=== PATIENT | female | born 1965 | race Caucasian/White ===

== ENCOUNTER → 2017-07-11 15:15 | Observation (INO) ==
--- OUTSIDE RECORDS SUMMARY | 2017-07-10 18:06 | External Medical Summary | Referral Summary ---
:1965 Author [facility] Address [address] [place] [address] [place] [address] Care Team Providers Name Role Phone Kayla Mathis Primary Care Physician Encounter VC Date(s): 03/16/15 - 03/16/15 [facility] [place] [address] [place] Discharge Disposition: 01-Home or Self Care Attending Physician: Son Aguilar MD Admitting Physician: Son Aguilar MD Vital Signs Most recent to oldest [Reference Range]: 1 Blood Pressure [90-140/60-90 mmHg] 140/84 mmHg (03/16/15 10:28 AM) Problem List Condition Effective Dates Status Health Status Informant DVT of deep femoral vein(Confirmed) Active Elevated BP(Confirmed) Active Hyperlipidemia(Confirmed) Active Acute knee pain(Confirmed) Active Morbid obesity(Confirmed) Active patient Knee osteoarthritis(Confirmed) Active Allergies, Adverse Reactions, Alerts Substance Reaction Severity Status acetaminophen-HYDROcodone Adverse Reaction Active aspirin Adverse Reaction Active ciprofloxacin Adverse Reaction Active Medications Mobic 7.5 mg oral tablet 7.5 mg 1 tabs, Oral, BID, Pain, wk norcraft, # 60 tabs, 0 Refill(s), Pharmacy: [id number], 1 tabs Oral BID,PRN:Pain,Instr:wkc norcraft Start Date: 03/16/15 Status: Orderedpravastatin 20 mg oral tablet 20 mg 1 tabs, Oral, Daily, # 30 tabs, 0 Refill(s) Start Date: 03/01/15 Status: Orderedvenlafaxine 50 mg oral tablet 50 mg 1 tabs, Oral, Daily, 0 Refill(s) Start Date: 03/01/15 Status: OrderedVictoza 18 mg/3 mL subcutaneous solution SubCutaneous, Daily, 0 Refill(s) Start Date: 04/12/15 Status: Ordered Results No data available for this section Immunizations No data available for this section Procedures No data available for this section Social History Social History Type Response Smoking Status Never smoker Assessment and Plan Extracted from: Title: Ambulatory Patient Education Author: Son Aguilar MD Date: Family Medicine Arthralgia Your caregiver has diagnosed you as suffering from an arthralgia. Arthralgia means there is pain in a joint. This can come from many reasons including: Bruising the joint which causes soreness (inflammation) in the joint. Wear and tear on the joints which occur as we grow older (osteoarthritis). Overusing the joint. Various forms of arthritis. Infections of the joint. Regardless of the cause of pain in your joint, most of these different pains respond to anti-inflammatory drugs and rest. The exception to this is when a joint is infected, and these cases are treated with antibiotics, if it is a bacterial infection. HOME CARE INSTRUCTIONS Rest the injured area for as long as directed by your caregiver. Then slowly start using the joint as directed by your caregiver and as the pain allows. Crutches as directed may be useful if the an kles, knees or hips are involved. If the knee was splinted or casted, continue use and care as directed. If an stretchy or elastic wrapping bandage has been applied today, it should be removed and re-ap plied every 3 to 4 hours. It should not be applied tightly, but firmly enough to keep swelling down. Watch toes and feet for swelling, bluish discoloration, coldness, numbness or excessive pain. If any of these problems (symptoms) occur, remove the abimael bandage and re-apply more loosely. If these symptoms persist, contact your caregiver or return to this location. For the first 24 hours, keep the injured extremity elevated on pillows while lying down. Apply ice for 15-20 minutes to the sore joint every couple hours while awake for the first half day. Then 03-04 times per day for the first 48 hours. Put the ice in a plastic bag and place a towel between the bag of ice and your skin. Wear any splinting, casting, elastic bandage applications, or slings as instructed. Only take bksj-kde-qhxdvva or prescription medicines for pain, discomfort , or fever as directed by your caregiver. Do not use aspirin immediately after the injury unless instructed by your physicia n. Aspirin can cause increased bleeding and bruising of the tissues. If you were given crutches, continue to use them as instructed and do not resume weight bearing on the sore joint until instructed. Persistent pain and inability to use the sore joint as directed for more than 2 to 3 days are warning signs indicating that you should see a caregiver for a follow-up visit as soon as possible. Initiall y, a hairline fracture (break in bone) may not be evident on X-rays. Persistent pain and swelling indicate that further evaluation, non-weight bearing or use of the joint (use of crutches or slings as i nstructed), or further X-rays are indicated. X-rays may sometimes not show a small fracture until a week or 10 days later. Make a follow-up appointment with your own caregiver or one to whom we have ref erred you. A radiologist (specialist in reading X-rays) may read your X-rays. Make sure you know how you are to obtain your X-ray results. Do not assume everything is normal if you do not hear from us. SEEK MEDICAL CARE IF: Bruising, swelling, or pain increases. SEEK IMMEDIATE MEDICAL CARE IF: Your fingers or toes are numb or blue. The pain is not responding to medications and continues to stay the same or get worse. The pain in your joint becomes severe. You develop a fever over 102 F (38.9 C). It becomes impossible to move or use the joint. MAKE SURE YOU: Understand these instructions. Will watch your condition. Will get help right away if you are not doing well or get worse. Document Released: 06/01/2006 Document Revised: 08/23/2012 Document Reviewed: 01/17/2009 ExitCare Patient Information 2015 [employer]. This information is not intended to replace advice given to you by your health care provider. Make sure you discuss any questions you have with your health care provider. No follow up information was provided. Extracted from: Title: Office Visit Note Author: Son Aguilar MD Date: 03/16/15 Assessment/Plan Acute knee pain Xray reviewed. Refill mobic. A work/school note was offered and deferred by the patient. To PCP if pain persists. Elevated BP This issue is stable and appropriate refills, lab, and f/u have been discussed. The patient reports their blood pressure has been stable at home and is not having any significant or r elated problems. There has been no chest pain, chest pressure, soa/velarde. Knee osteoarthritis To PCP if pain persists. This appears to be chronic underlying knee pain aggravated by her [facility] issue. The patient has family members present who are agreeable with today's joanne n and have no additional concerns or requests. Moises here. Orders: meloxicam, 7.5 mg 1 tabs, Oral, BID, Pain, [facility], # 60 tabs, 0 Refill(s), Pharmacy: [id number], 1 tabs Oral BID,PRN:Pain,Instr: [facility]
--- OUTSIDE RECORDS SUMMARY | 2017-07-10 18:06 | External Medical Summary | Referral Summary ---
:1965 Author Organization [facility] [place] [address] Care Team Providers Name Role Phone Kayla Mathis Primary Care Physician Encounter VC Date(s): 03/01/15 - 03/01/15 [facility] [place] [address] [place] Discharge Disposition: 01-Home or Self Care Attending Physician: Son Aguilar MD Admitting Physician: Son Aguilar MD Vital Signs Most recent to oldest [Reference Range]: 1 Blood Pressure [90-140/60-90 mmHg] 140/90 mmHg (03/01/15 1:09 PM) Problem List Condition Effective Dates Status Health [...] norcraft, # 60 tabs, 0 Refill(s), Pharmacy: [id number], 1 tabs Oral BID,PRN:Pain,Instr:wkc norcraft Start Date: [...] Author: Son Aguilar MD Date: Family Medicine Cholesterol Cholesterol is a white, waxy, fat-like substance needed by your body in small amounts. The liver makes all the cholesterol you need. Cholesterol is carried from the liver by the blood through the blood vessels. Deposits of cholesterol (plaque) may build up on blood vessel nash. These make the arteries narrower and stiffer. Cholesterol plaques increase the risk for heart attack and stroke. You cannot feel your cholesterol level even if it is very high. The only way to know it is high is with a blood test. Once you know your cholesterol levels, you should keep a record of the test results. Work with your health care provider to keep your levels in the desired range. WHAT DO THE RESULTS MEAN? Total cholesterol is a rough measure of all the cholesterol in your blood. LDL is the so-called bad cholesterol. This is the type that deposits cholesterol in the nash of the arteries. You want this level to be low. HDL is the good cholesterol because it cleans the arteries and carries the LDL away. You want this level to be high. Triglycerides are fat that the body can either burn for energy or store. High levels are closely linked to heart disease. WHAT ARE THE DESIRED LEVELS OF CHOLESTEROL? Total cholesterol below 200. LDL below 100 for people at risk, below 70 for those at very high risk. HDL above 50 is good, above 60 is best. Triglycerides below 150. HOW CAN I LOWER MY CHOLESTEROL? Diet. Follow your diet programs as directed by your health care provider. Choose fish or white meat chicken and turkey, roasted or baked. Limit fatty cuts of red meat, fried foods, and processed meats, such as sausage and lunch meats. Eat lots of fresh fruits and vegetables. Choose whole grains, beans, pasta, potatoes, and cereals. Use only small amounts of olive, corn, or canola oils. Avoid butter, mayonnaise, shortening, or palm kernel oils. Avoid foods with trans fats. Drink skim or nonfat milk and eat low-fat or nonfat yogurt and cheeses. Avoid whole milk, cream, ice cream, egg yolks, and full-fat cheeses. Healthy desserts include priyanka food cake, mariano snaps, animal crackers, hard candy, popsicles, and low-fat or nonfat frozen yogurt. Avoid pastries, cakes, pies, and cookies. Exercise. Follow your exercise programs as directed by your health care provider. A regular program helps decrease LDL and raise HDL. A regular program helps with weight control. Do things that increase your activity level like gardening, walking, or taking the stairs. Ask your health care provider about how you can be more active in your daily life. Medicine. Take medicine only as directed by your health care provider. Medicine may be prescribed by your health care provider to help lower cholesterol and decrease the risk for heart disease. If you have several risk factors, you may need medicine even if your levels are normal. Document Released: 02/24/2002 Document Revised: 10/16/2014 Document Reviewed: 03/15/2014 [facility] Patient Information 2015 [employer]. This information is not intended to replace advice given to you by your health care provider. Make sure you discuss any questions you have with your health care provider. No follow up information was provided. Extracted from: Title: Office Visit Note Author: Son Aguilar MD Date: 03/01/15 Assessment/Plan Acute knee pain, Right knee pain Xray pending. Consider recheck/consult/and meds given. Mobic 7.5mg po bid prn. No other nsaids. DVT of deep femoral vein Has seen . Hyperlipidemia This issue is stable and appropriate refills, lab, and f/ u have been discussed. Emmy-menopausal This issue is stable and appropriate refills, lab, and f/u have been discussed. Orders: meloxicam, 7.5 mg 1 tabs, Oral, BID, Pain, wk norcraft, # 60 tabs, 0 Refill(s), Pharmacy: [id number], 1 tabs Oral BID,PRN:Pain,Instr: wk norcraft Addendum by Son Aguilar MD on The patient [place] March 01, 2015 14:04:24 CDT and to the department. Any pertinent available records, lab, outside information, and available health history forms have been reviewed.
--- OUTSIDE RECORDS SUMMARY | 2017-07-10 18:06 | External Medical Summary ---
:1965 Author Organization [employer] Care Team Providers Name Role Phone Ivy Yap Provider Role Unavailable Allergies No Known Allergies Problems Problem Type Condition Code Onset Dates Condition Status Problem Premature ventricular contractions I49.3 Active Problem Elevated blood pressure I10 Active Problem Dyslipidemia E78.5 Active Problem Prediabetes R73.09 Active Problem Pre-operative cardiovascular Z01.810 Active examination Medications No Known Medications Results No Known Results Summary Purpose eClinicalWorks Submission
--- OUTSIDE RECORDS SUMMARY | 2017-07-10 18:06 | External Medical Summary | Referral Summary ---
:1965 Author Organization [facility] [place] [address] Care Team Providers Name Role Phone Kayla Mathis Primary Care Physician Encounter VC Date(s): 04/12/15 - 04/12/15 [facility] [place] [address] [place] Discharge Disposition: 01-Home or Self Care Attending Physician: Son Aguilar MD Admitting Physician: Son Aguilar MD Vital Signs Most recent to oldest [Reference Range]: 1 Blood Pressure [90-140/60-90 mmHg] 140/90 mmHg (04/12/15 3:49 PM) Problem List Condition Effective Dates Status [...] norcraft, # 60 tabs, 0 Refill(s), Pharmacy: [facility], 1 tabs Oral BID,PRN:Pain,Instr:wkc norcraft Start Date: [...] Patient Education Author: Son Aguilar MD Date: 04/12 Family Medicine Arthralgia Your caregiver has diagnosed [...] applications, or slings as instructed. Only take [id number]-[id number] or prescription medicines for pain, discomfort , [...] Document Reviewed: 01/17/2009 ExitCare Patient Information 2015 [employer]. This information is not intended to replace advice given to you by your health care provider. Make sure you discuss any questions you have with your health care provider. No follow up information was provided. Extracted from: Title: Office Visit Note Author: Son Aguilar MD Date: 04/12/15 Assessment/Plan Acute meniscal tear, medial If correct needs to see Ortho. The patient has family members present who are agreeable with today's plan and have no additional concerns or requests. Knee osteoarthritis This issue is stable and appropriate refills, lab, and f/ u have been discussed. Continue mobic for now. See ortho.RTW note given and needs to see ortho. Knee pain, right See above. Morbid obesity Diet and exercise as tolerated and feasible. Consider medication when interested.
--- OUTSIDE RECORDS SUMMARY | 2017-07-10 18:06 | External Medical Summary | Referral Summary ---
:1965 Author [facility] Address [address] [place] [address] [place] [address] Care Team Providers Name Role Phone Kayla Mathis Primary Care Physician Encounter VC Date(s): 03/16/15 - 03/16/15 [facility] [place] [address] [place] Discharge Disposition: [...] Reaction Active ciprofloxacin Adverse Reaction Active Medications metFORMIN 500 mg oral tablet 500 mg 1 tabs, Oral, BID, # 180 tabs, 0 Refill(s) Start Date: 03/01/15 Status: OrderedMobic 7.5 mg oral tablet 7.5 mg 1 tabs, Oral, BID, Pain, [facility] norcraft, # 60 tabs, 0 Refill(s), Pharmacy: [id number], 1 tabs Oral BID,PRN:Pain,Instr:wkc norcraft Start Date: 03/16/15 Status: Orderedpravastatin 20 mg oral tablet 20 mg 1 tabs, Oral, Daily, # 30 tabs, 0 Refill(s) Start Date: 03/01/15 Status: Orderedvenlafaxine 50 mg oral tablet 50 mg 1 tabs, Oral, Daily, 0 Refill(s) Start Date: 03/01/15 Status: Ordered Results No data available for [...] applications, or slings as instructed. Only take trdb-swd-rqyomfz or prescription medicines for pain, discomfort , [...] Document Reviewed: 01/17/2009 ExitCare Patient Information 2015 [employer]. This information is not intended to replace [...] chronic underlying knee pain aggravated by her [facility] issue. The patient has family members present who are agreeable with today's joanne n and have no additional concerns or requests. Moises here. Orders: meloxicam, 7.5 mg 1 tabs, Oral, BID, Pain, [facility], # 60 tabs, 0 Refill(s), Pharmacy: [id number], 1 tabs Oral BID,PRN:Pain,Instr: [facility]
--- OUTSIDE RECORDS SUMMARY | 2017-07-10 18:06 | External Medical Summary | Referral Summary ---
:1965 Author Organization [facility] [place] [address] Care Team Providers Name Role Phone Kayla Mathis Primary Care Physician Encounter VC Date(s): 04/12/15 - 04/12/15 [facility] [place] [address] [place] Discharge Disposition: [...] norcraft, # 60 tabs, 0 Refill(s), Pharmacy: [facility], 1 tabs Oral BID,PRN:Pain,Instr:wkc norcraft [...] applications, or slings as instructed. Only take jqmp-sjf-pxbdvzq or prescription medicines for pain, discomfort , [...] Document Reviewed: 01/17/2009 ExitCare Patient Information 2015 [employer]. This information is not intended to replace [...]
[2017-07-10 18:23] VITALS: BMI 43.4
--- NOTE | 2017-07-10 18:41 | History & Physical Report ---
History of Present Illness Date: 07/10/17 Chief complaint: UTI, Fever HPI: Gracie is a pleasant 51-year-old female who presented to see her primary care provider, Dr. Kayla Mathis at [facility] in [place] today for evaluation of 10 days of dysuria. Patient was positive for influenza A last week and completed a course of Tamiflu. She reports that during this course. She began having dysuria and initially thought it was related to Tamiflu. As symptoms continued to worsen. She then became concerned about infection. At the clinic today. CBC was obtained, showed a normal white count of 10.5, hemoglobin 12.4. A dipstick urinalysis showed positive leukocytes, positive nitrites, positive protein with packed field of RBCs. At time of examination, patient had a fever of 104. Given the severity of her fever and clinical symptoms, accompanied with length of dysuria. The hospitalist services were contacted and directly admitted patient to [facility] outpatient observation under care of Dr. Mims. Patient is seen on arrival to [facility], is alert, oriented, pleasant and able to give accurate history. She does note that she was told she is a diabetic, however, does not take metformin because it has side effects and causes her to have joint pain. Review of Systems All systems PM: 10-point ROS was reviewed, no additional remarkable complaints except - Constitutional Constitutional: Present: chills, fatigue, fever(s), headache(s) - Genitourinary Genitourinary: Present: dysuria, hot flashes Past Medical History Hypertension Hyperlipidemia Type II diabetes Osteoarthritis Depression Polyarthralgia History of asthma Surgical History: Hysterectomy. Left knee arthroscopic. . Bladder laser. Total knee-2015 (Dr. Aden). Colonoscopy-2006. Negative stress test /[id number]. Sanchez Family History Updates: Father-lymphoma, CVA. Mother-hypertension, hyperlipidemia. Siblings with breast cancer, hypothyroidism, diabetes - Social History Smoking status: Former smoker (, quit 1994) Substance use type: does not use Alcohol intake: current Alcohol intake frequency: holidays/special occasions only Housing: house Household members: significant other Current occupational status: employed ([employer], [employer]) Social history: Primary care provider, Dr. Kayla Mathis-[facility], [place], [place] Exam Vital Signs: Temperature 99.9 F 07/10/17 18:28 Pulse Rate 102 H 07/10/17 18:28 Respiratory Rate 16 07/10/17 18:28 Blood Pressure 145/68 H 07/10/17 18:28 Pulse Oximetry 96 07/10/17 18:28 Height/Weight/BMI: Height 1.55 m Weight 104.2 kg Body Mass Index 43.4 - Constitutional Present: no acute distress, well nourished, well developed - Routine HEENT Exam Eye: Present: EOMI ENT: Present: mucous membranes moist, dentition normal - Routine Respiratory Exam Present: CTA bilaterally. Absent: wheezes - Routine Cardiovascular Exam Present: RRR, S1, S2. Absent: murmur - Routine Abdominal Exam Present: soft, normoactive bowel sounds, non distended. Absent: tenderness - Routine Extremities Exam Present: normal capillary refill - Routine Back/Spine/Pelvis Exam Back/Spine: Present: full ROM - Routine Skin Exam Present: intact, dry, warm - Routine Neurological Exam Present: alert, oriented X3, CN II-XII intact, moving all extremities - Routine Psychiatric Exam Present: normal affect, cooperative Results - Labs CBC & Chem 7: 07/10/17 19:08 07/10/17 19:08 Assessment and Plan (1) Urinary tract infection Current visit: Yes Status: Acute Assessment and Plan: Impression Urinary tract infection Hypertension Hypercholesterolemia Type II diabetes History of asthma Polyarthralgia Obesity Depression Plan Admit patient to outpatient observation under the care of Dr. Mims for acute urinary tract infection The following labs on admission CBC, CMP, venous lactate, pro calcitonin, magnesium, blood cultures 2, urinalysis, urine culture, hemoglobin A1c, and viral respiratory panel Patient did receive one-time dose of Rocephin 1 gram IM while at the clinic. We will continue this every 24 hours IV Rocephin Normal saline at 150 ML per hour for ongoing hydration Tylenol as needed for pain control Monitor Accu-Cheks, patient had carb consistent diet. Zofran as needed for nausea SCDs to bilateral lower extremity for DVT prophylaxis This further orders and plan Dr. Prasanna Saravia. At time of discharge medical care is to return to primary care provider, Dr. Kayal Mims Assessment: as above with - Hypokalemia (POA) DVT Prophylaxis: SCD's Resuscitation Status: Full Code - Physician Narrative Physician: Amarjit Mims MD Narrative: Date: 07/10/17 Time: 2055 Have independently interviewed and examined pt. Chart reviewed. Case discussed with pt's PCP and my [employer]. Care plan developed with my supervision; agree with above. Recovering from influenza-still with decreased appetite, fatigue, and cough ( worse at night). Unfortunately, has been having increased urinary frequency and discomfort. Urgency to go. Having temp elevation. Seen in clinic and looking acutely ill. Temp elevated to 104 in clinic. Urine does show evidence of infection. Given Rocephin in clinic and PCP called for admission for further evaluation and care. Lungs: decreased, no distress CV: tachy, regular AB: soft nt/nd MSE: awake alert Gen: looks tired Plan: OBS. IVF - NS for 1L and then change to NS with 20KCl to help normalize potassium. Continue Rocephin. Monitor lab. SCD for DVT prevention. Hospital Course Summary Disclaimer: The visit summary below is not to be considered part of the above Progress Note. Hospital Course: Impression Urinary tract infection Hypertension Hypercholesterolemia Type II diabetes History of asthma Polyarthralgia Obesity Depression Plan Admit patient to outpatient observation under the care of Dr. Mims for acute urinary tract infection The following labs on admission CBC, CMP, venous lactate, pro calcitonin, magnesium, blood cultures 2, urinalysis, urine culture, hemoglobin A1c, and viral respiratory panel Patient did receive one-time dose of Rocephin 1 gram IM while at the clinic. We will continue this every 24 hours IV Rocephin Normal saline at 150 ML per hour for ongoing hydration Tylenol as needed for pain control Monitor Accu-Cheks, patient had carb consistent diet. Zofran as needed for nausea SCDs to bilateral lower extremity for DVT prophylaxis This further orders and plan Dr. Prasanna Saravia. At time of discharge medical care is to return to primary care provider, Dr. Kayla Drake
[2017-07-10] MEDS: ACETAMINOPHEN 325 MG TABLET PO PRN (19:53)
[2017-07-10] MEDS: NS with KCL 20 mEq 1,000 ML IV SCH (23:11)
[2017-07-11] MEDS: ACETAMINOPHEN 325 MG TABLET PO PRN ×3 (01:29→12:08)
[2017-07-11] MEDS: NS with KCL 20 mEq 1,000 ML IV SCH ×2 (07:00→11:09)
[2017-07-11 07:29] VITALS: BP 151/74; PULSE 93; RESP 20; TEMP 100.6; O2SAT 96
--- NOTE | 2017-07-11 12:10 | Progress Note ---
- Date 07/11/17 Subjective: F/U: UTI, Leukocytosis Doing better-less F/C. Strength improving but will wax and wane. Ambulating better. Less temperature elevation. Much less discomfort with urination. No nausea or ab pain. Breathing well-minimal cough. Notes some nasal congestion. Objective Vital signs: Temperature 100.6 F H 07/11/17 07:28 Pulse Rate 93 07/11/17 07:28 Respiratory Rate 20 07/11/17 07:28 Blood Pressure 151/74 H 07/11/17 07:28 Pulse Oximetry 96 07/11/17 07:28 Height/Weight/BMI: Height 1.55 m Weight 104.2 kg Body Mass Index 43.4 - Constitutional Present: moderate distress, well nourished, morbidly obese, cooperative - Routine HEENT Exam Head: Present: normocephalic, atraumatic Eye: Present: EOMI, PERRL ENT: Present: mucous membranes moist - Routine Respiratory Exam Present: CTA bilaterally. Absent: prolonged expiratory phase, respiratory distress, wheezes - Routine Cardiovascular Exam Present: RRR, no murmur - Routine Abdominal Exam Present: soft, normoactive bowel sounds, non distended, non tender - Routine Extremities Exam Present: edema (trace BLE ), pulses intact. Absent: cyanosis, clubbing - Routine Musculoskeletal Exam Musculoskeletal: Present: no clubbing or cyanosis, normal strength - Routine Skin Exam Present: dry, warm - Routine Neurological Exam Present: alert, oriented X3, CN II-XII intact, moving all extremities, vision grossly intact, hearing grossly intact, normal speech. Absent: motor deficit, altered mental status - Routine Psychiatric Exam Present: normal affect, normal thought process, cooperative, good insight, good judgment Results - Labs CBC & Chem 7: 07/11/17 08:29 07/11/17 08:29 Microbiology Results: Microbiology 07/10/17 18:35 Urine, Voided (Cc/notcc) Urine Culture - Preliminary Culture Initiated - Results Pending 07/10/17 19:08 Peripheral/Iv Start Blood Culture - Preliminary Culture Initiated - Results Pending 07/10/17 19:18 Peripheral/Iv Start Blood Culture - Preliminary Culture Initiated - Results Pending Assessment and Plan (1) Urinary tract infection Current visit: Yes Status: Acute Assessment and Plan: Impression Urinary tract infection Leukocytosis Hypokalemia (POA) - resolved Hypertension Hypercholesterolemia Type II diabetes - Diet/exercises controlled A1c 6.1% History of asthma Polyarthralgia Morbid obesity with BMI 43.4 Depression Recent Influenza Plan With clinical improvement, will discharge to home. WBC stable. Eating/drinking well. BP stable. Not seeing evidence for sepsis. A1c 6.1% - indicating good control. Encourage continued diabetic diet/ activities. Cephalexin 500mg TID for 5 day. Urine cultures pending. Uncertain if will show any growth as did have Rocephin in clinic prior to admission. Cranberry juice may help soothe urinary tract. Recommend yogurt to decrease risk of diarrhea with antibiotic therapy. May return to work on Thursday07/14/17 - not given to patient. F/U with Dr Drake in 1 week, sooner as problems or need indicate. See orders for details. Case discussed with CM and patient's . Time spent with patient care and discharge greater than 30 minutes. DVT Prophylaxis: SCD's Resuscitation Status: Full Code - Physician Narrative Physician: Amarjit Mims MD Narrative: Date: 07/11/17 Time: 1206 Hospital Course Summary Disclaimer: The visit summary below is not to be considered part of the above Progress Note. Hospital Course: 07/10/17 Admit patient to outpatient observation under the care of Dr. Mims for acute urinary tract infection. The following labs on admission CBC, CMP, venous lactate, pro calcitonin, magnesium, blood cultures 2, urinalysis, urine culture, hemoglobin A1c, and viral respiratory panel. Patient did receive one-time dose of Rocephin 1 gram IM while at the clinic. We will continue this every 24 hours IV Rocephin. Normal saline at 150 ML per hour for ongoing hydration. Tylenol as needed for pain control. Monitor Accu-Cheks, patient had carb consistent diet. Zofran as needed for nausea. SCDs to bilateral lower extremity for DVT prophylaxis. At time of discharge medical care is to return to primary care provider, Dr. Kayla Drake. 07/11/17 With clinical improvement, will discharge to home. WBC stable. Eating/drinking well. BP stable. Not seeing evidence for sepsis. A1c 6.1% - indicating good control. Encourage continued diabetic diet/ activities. Cephalexin 500mg TID for 5 day. Urine cultures pending. Uncertain if will show any growth as did have Rocephin in clinic prior to admission. Cranberry juice may help soothe urinary tract. Recommend yogurt to decrease risk of diarrhea with antibiotic therapy. May return to work on Thursday07/14/17 - not given to patient. F/U with Dr Drake in 1 week, sooner as problems or need indicate. See orders for details.
--- NOTE | 2017-07-11 12:34 | Work/School Release ---
Work/School Release - Date Date: 07/11/17 - Work Release Excused for:: Gracie Javier was hospitalized at [facility] from 07/10/17 until . She may return to work on Thursday07/14/17. Dr Mims
--- NOTE | 2017-07-11 12:37 | Discharge Summary ---
Discharge Information Date of admission: 07/10/17 17:53 Anticipated date of discharge: 07/11/17 Attending Physician: Amarjit Mims MD Primary care physician: Kayal Mathis MD - Discharge Diagnosis (1) Urinary tract infection Status: Acute Discharge diagnosis Urinary tract infection - urine culture pending at time of discharge Associated conditions and complications Leukocytosis Hypokalemia (POA) - resolved Hypertension Hypercholesterolemia Type II diabetes - Diet/exercises controlled A1c 6.1% History of asthma Polyarthralgia Morbid obesity with BMI 43.4 Depression Recent Influenza - Laboratory Labs: Admit Lab 07/10/17 19:08 WBC 11.4 H Hgb 11.2 L Hct 34.6 L MCV 86.7 Plt Count 260 Neut % (Auto) 68.0 H Lymph % (Auto) 18.3 L [place] % (Auto) 13.2 H Eos % (Auto) 0.0 Baso % (Auto) 0.2 Admit Lab 07/10/17 07/10/17 19:08 19:08 Sodium 139 Potassium 3.4 L Chloride 103 Carbon Dioxide 27 Anion Gap 9 BUN 11.0 Creatinine 0.7 GFR Calculation 89 BUN/Creatinine Ratio 16 Glucose 115 H Hemoglobin A1c 6.1 H Calculated Osmolality 268 Calcium 8.4 Magnesium 2.0 Total Bilirubin 0.60 AST 17 ALT 35 Alkaline Phosphatase 92 Total Protein 6.8 Albumin 3.7 Globulin 3.1 Albumin/Globulin Ratio 1.2 Plasma Lactate 1.2 Procalcitonin 0.16 UA 07/10/17 18:35 Ur Specific [place] <=1.005 L Urine Nitrate Negative Ur Leukocyte Esterase 2+ A Urine WBC 50-200 H Urine Bacteria 2+ H Ur Culture Indicated? Cult reflexed &setup 07/11/17 08:29 07/11/17 08:29 - Microbiology Microbiology 07/10/17 18:35 Urine, Voided (Cc/notcc) Urine Culture - Preliminary Culture Initiated - Results Pending 07/10/17 19:08 Peripheral/Iv Start Blood Culture - Preliminary Culture Initiated - Results Pending 07/10/17 19:18 Peripheral/Iv Start Blood Culture - Preliminary Culture Initiated - Results Pending History of Present Illness HPI: Gracie is a pleasant 51-year-old female who presented to see her primary care provider, Dr. Kayla Mathis at [facility] in [facility] for evaluation of 10 days of dysuria. Patient was positive for influenza A last week and completed a course of Tamiflu. She reports that during this course. She began having dysuria and initially thought it was related to Tamiflu. As symptoms continued to worsen. She then became concerned about infection. At the clinic today. CBC was obtained, showed a normal white count of 10.5, hemoglobin 12.4. A dipstick urinalysis showed positive leukocytes, positive nitrites, positive protein with packed field of RBCs. At time of examination, patient had a fever of 104. Given the severity of her fever and clinical symptoms, accompanied with length of dysuria. The hospitalist services were contacted and directly admitted patient to [facility] outpatient observation under care of Dr. Mims. Patient is seen on arrival to [facility], is alert, oriented, pleasant and able to give accurate history. She does note that she was told she is a diabetic, however, does not take metformin because it has side effects and causes her to have joint pain. For complete details of the H&P refer to that document. Objective Vital signs: Temperature 100.6 F H 07/11/17 07:28 Pulse Rate 93 07/11/17 07:28 Respiratory Rate 20 07/11/17 07:28 Blood Pressure 151/74 H 07/11/17 07:28 Pulse Oximetry 96 07/11/17 07:28 Height/Weight/BMI: Height 1.55 m Weight 104.2 kg Body Mass Index 43.4 Hospital Course This is a general summary of the patient's hospital course. For more details refer to the complete medical record. Hospital course: 07/10/17 Admit patient to outpatient observation under the care of Dr. Mims for acute urinary tract infection. The following labs on admission CBC, CMP, venous lactate, pro calcitonin, magnesium, blood cultures 2, urinalysis, urine culture, hemoglobin A1c, and viral respiratory panel. Patient did receive one-time dose of Rocephin 1 gram IM while at the clinic. We will continue this every 24 hours IV Rocephin. Normal saline at 150 ML per hour for ongoing hydration. Tylenol as needed for pain control. Monitor Accu-Cheks, patient had carb consistent diet. Zofran as needed for nausea. SCDs to bilateral lower extremity for DVT prophylaxis. At time of discharge medical care is to return to primary care provider, Dr. Kayla Drake. 07/11/17 With clinical improvement, will discharge to home. WBC stable. Eating/drinking well. BP stable. Not seeing evidence for sepsis. A1c 6.1% - indicating good control. Encourage continued diabetic diet/ activities. Cephalexin 500mg TID for 5 day. Urine cultures pending. Uncertain if will show any growth as did have Rocephin in clinic prior to admission. Cranberry juice may help soothe urinary tract. Recommend yogurt to decrease risk of diarrhea with antibiotic therapy. May return to work on Thursday07/14/17 - not given to patient. F/U with Dr Drake in 1 week, sooner as problems or need indicate. See orders for details. Time spent with patient: discharge greater than 30 minutes Resuscitation Status: Full Code Discharge Plan - Discharge Disposition Discharge Date: 07/11/17 Disposition: Discharged Home, Self-Care *Condition: Stable Reason For Visit (Visit label in EMR): pyelonephritis - Discharge Medications *Discharge Medications: New cephALEXin [Cephalexin] 500 mg PO TID #15 tab Guaifenesin/Dm [Mucinex Dm] 1 tab PO BID PRN #1 bottle PRN Reason: Cough Ondansetron HCl 4 mg PO Q6HR PRN #20 tab PRN Reason: Nausea Sodium Chloride [Marine] 2 spray NS QID PRN #1 bottle PRN Reason: Nasal Congestion - Discharge Packet/Instructions *Diet: 2000 KCAL ADA low sodium *Activity: As tolerated - may return to work on Thursday07/14/17 *Pain Management/Treatment: Continue prior pain medications *Wound Care: N/A Additional Instructions: Start cephalexin on 07/12/17. You had a dose of Rocephin on 07/11/17 and it stay in your sytem for 24 hours. May use over the counter nasal saline as needed to help nasal congestion. Mucinex DM (or similar product) can help decrease cough and congestion. Cranberry juice can help soothe urinary tract and decrease urinary symptoms. Yogurt can help promote bowel regularity with antibiotic use. Mouthwash (Listerine/Scope/ect) can decrease risk for thrush with antibiotic use. Continue previous home medications - they were not updated in the computer system when you were admitted here. *Expected Signs/Symptoms: Decreasing fever and urinary symtoms. Improvement of strenght. *Notify Physician if: Temp > 101.4. Intractable nausea or vomiting. *During Business Hours Contact: Dr Mathis *After Business Hours Contact: Dr Mathis *Pending Lab/Results: Follow up w/Provider - Referrals/Follow Up *Referrals/Follow Up: Kayla Mathis MD [Family Provider] - 1 Week (Hospital follow up for UTI ) - Patient Handouts - Dismissal Complete Discharge Instructions are:: Complete Physician Narrative - Narrative Physician: Amarjit Mims MD Attestation Narrative: Date: 07/11/17 Time: 1234 I have independently interviewed and examined patient prior to discharge. See my progress note from today for complete details. Medically stable for discharge to home.
[~2017-07-11 15:15] MED LIST: BISACODYL 10 MG SUPPOSITORY RECTALLY PRN; CEFTRIAXONE 1 G in NS 50 ML IV SCH; NS 1,000 ML IV SCH; ONDANSETRON 4 MG/2 ML INJECTION IVP PRN
== END | disposition home or self-care (01) ==
LOC: SRG
PROVIDERS: ADMIT Hospitalist; ATTEND Hospitalist